=== PATIENT | female | born 1945 | race Caucasian/White ===

== ENCOUNTER → 2019-09-14 | Outpatient (REF) | payer MEDICARE, BC, OTHER | LOC: M LAB REF 08:22 | PROVIDERS: ATTEND Dermatology | DX: L72.0 Epidermal cyst (principal) ==

== ENCOUNTER 2023-08-08 07:41 | Emergency (ER) | payer MEDICARE, BC ==
[~2023-08-08] VITALS: Ht 165.1 cm; Wt 68.0 kg
[2023-08-08] MEDS: DIGOXIN INJ 0.5 MG/2 ML AMP IV STA (08:20)
[2023-08-08 08:25] LABS: BASO % 0.6 % (0.0-1.0); EOS # 0.1 10^3/uL (0.0-0.5); EOS % 1.7 % (0.0-3.0); HEMATOCRIT 40.8 % (36.0-47.0); HEMOGLOBIN 14.2 g/dl (12.0-15.5); LYMPH # 2.3 10^3/uL (1.5-5.0); LYMPH % 48.2 % (24.0-44.0); MEAN CORPUSCULAR HEMOGLOBIN 31.1 pg (27.0-33.0); MEAN CORPUSCULAR HGB CONC 34.8 g/dl (32.0-36.5); MEAN CORPUSCULAR VOLUME 89.5 fl (80.0-96.0); MONO # 0.3 10^3/uL (0.0-0.8); MONO % 7.3 % (2.0-8.0); PLATELET COUNT, AUTOMATED 338 10^3/uL (150-450); RED BLOOD COUNT 4.56 10^6/uL (4.00-5.40); WHITE BLOOD COUNT 4.7 10^3/uL (4.0-10.0)
[2023-08-08 08:57] LABS: BLOOD UREA NITROGEN 11 MG/DL (9-23); CALCIUM LEVEL 8.9 MG/DL (8.3-10.6); CARBON DIOXIDE LEVEL 26 MMOL/L (20-31); CHLORIDE LEVEL 107 MMOL/L (98-107); CREATININE FOR GFR 0.54 MG/DL (0.55-1.30); GLOMERULAR FILTRATION RATE > 60.0 (>39); GLUCOSE, FASTING 132 MG/DL (74-106); MAGNESIUM LEVEL 1.9 MG/DL (1.8-2.4); POTASSIUM SERUM 4.1 MMOL/L (3.5-5.1); SODIUM LEVEL 140 MMOL/L (136-145)
[2023-08-08 08:59] LABS: THYROID STIMULATING HORMONE 2.234 uIU/ML (0.55-4.78)
[2023-08-08] MEDS ORDERED: SERT25TA85 PO (09:03)
[2023-08-08] MEDS ORDERED: PANT40TA29 PO (09:04)
[2023-08-08] MEDS ORDERED: ISOVUE-370 76% 100ML VIAL As Ordered ONE (09:04)
[2023-08-08] MEDS ORDERED: MIRA3350 PO (09:05)
[2023-08-08] MEDS ORDERED: ROPI0.5T33 PO (09:06)
[2023-08-08] MEDS ORDERED: LIPI20TA PO (09:06)
[2023-08-08] MEDS ORDERED: BUTA1CAP PO (09:32)
[2023-08-08] MEDS ORDERED: COQ150CH PO (09:32)
[2023-08-08] MEDS ORDERED: OMEG-23 PO (09:34)
[2023-08-08] MEDS ORDERED: CHOL125C6 PO (09:35)
[2023-08-08] MEDS ORDERED: CALC1TAB42 PO (09:36)
[2023-08-08] MEDS ORDERED: B12-1CHW PO (09:37)
[2023-08-08] MEDS ORDERED: BIOT5TAB3 PO (09:37)
[2023-08-08] MEDS ORDERED: MAGO400T2 PO (09:38)
[2023-08-08] MEDS ORDERED: ELIQ5TAB PO (13:24)
[2023-08-08] MEDS ORDERED: HOLTER MONITOR XX (13:24)
[2023-08-08] MEDS: APIXABAN 5 MG TAB (ELIQUIS) PO ONE (13:26)
[2023-08-08 13:30] VITALS: BP 116/67; TEMP 97.1; O2SAT 98
== END 2023-08-08 13:45 | disposition home or self-care (01) ==
LOC: EDBD 07:41 → M ED 07:41
DX: R00.1 Bradycardia, unspecified (principal); K21.9 Gastro-esophageal reflux disease without esophagitis; E78.5 Hyperlipidemia, unspecified; F41.9 Anxiety disorder, unspecified; F32.A Depression, unspecified; Z91.89 Other specified personal risk factors, not elsewhere classified; Z91.02 Food additives allergy status
CPT/HCPCS: 71045; 71275; 80048; 83735; 84443; 84484; 85025; 93005; 93041; 94760; 96374; 99285; J1160; Q9967

== ENCOUNTER → 2023-08-08 | Outpatient (CLI) | payer MEDICARE, BC ==
[~2023-08-08] MED LIST: B12-1CHW PO; BIOT5TAB3 PO; BUTA1CAP PO; CALC1TAB42 PO; CHOL125C6 PO; COQ150CH PO; ELIQ5TAB PO; HOLTER MONITOR XX; LIPI20TA PO; MAGO400T2 PO; MIRA3350 PO; OMEG-23 PO; PANT40TA29 PO; ROPI0.5T33 PO; SERT25TA85 PO
== END ==
LOC: M EKG 13:49
PROVIDERS: ATTEND Emergency Medicine
DX: I48.91 Unspecified atrial fibrillation (principal); Z53.9 Procedure and treatment not carried out, unspecified reason

== ENCOUNTER → 2024-06-21 | Outpatient (REF) | payer MEDICARE, OTHER | LOC: M LAB REF 17:05 | PROVIDERS: ATTEND Registered Nurse | DX: R35.0 Frequency of micturition (principal) ==

== ENCOUNTER → 2024-06-28 | Outpatient (CLI) | payer MEDICARE, BC | LOC: M PLARAD 12:48 | PROVIDERS: ATTEND Registered Nurse | DX: G43.909 Migraine, unspecified, not intractable, without status migrainosus (principal); G31.9 Degenerative disease of nervous system, unspecified ==

== ENCOUNTER → 2024-09-19 | Outpatient (REF) | payer MEDICARE, BC ==
[2024-09-19 17:55] LABS: APPEARANCE, URINE CLEAR (CLEAR); BACTERIA, URINE AUTO NEGATIVE (NEGATIVE); BILIRUBIN, URINE AUTO NEGATIVE (NEGATIVE); BLOOD, URINE BLOOD 1+ (NEGATIVE); GLUCOSE, URINE (UA) AUTO NEGATIVE (NEGATIVE); KETONE, URINE AUTO NEGATIVE (NEGATIVE); LEUKOCYTE ESTERASE, URINE AUTO NEGATIVE (NEGATIVE); NITRITE, URINE AUTO NEGATIVE (NEGATIVE); PROTEIN, URINE AUTO NEGATIVE (NEGATIVE); RBC, URINE AUTO 1 /HPF (0-3); SPECIFIC GRAVITY URINE AUTO 1.008 (1.002-1.035); SQUAMOUS EPITHELIAL CELL UR AU 0 /HPF (0-6); UROBILINOGEN, URINE AUTO 0.2 mg/dL (0.0-2.0); WBC, URINE AUTO 0 /HPF (0-3)
== END ==
LOC: M SMT 17:00
PROVIDERS: ATTEND Urology
DX: R31.29 Other microscopic hematuria (principal)

== ENCOUNTER → 2024-09-26 | Outpatient (CLI) | payer MEDICARE, BC | LOC: M RAD 07:41 | PROVIDERS: ATTEND Registered Nurse | DX: R93.89 Abnormal findings on diagnostic imaging of other specified body structures (principal); R93.2 Abnormal findings on diagnostic imaging of liver and biliary tract; R93.3 Abnormal findings on diagnostic imaging of other parts of digestive tract ==

== ENCOUNTER → 2024-11-01 | Outpatient (REF) | payer MEDICARE, BC ==
[2024-11-01 14:17] LABS: APPEARANCE, URINE HAZY (CLEAR); BACTERIA, URINE AUTO 1+ (NEGATIVE); BILIRUBIN, URINE AUTO NEGATIVE (NEGATIVE); BLOOD, URINE BLOOD 1+ (NEGATIVE); GLUCOSE, URINE (UA) AUTO NEGATIVE (NEGATIVE); KETONE, URINE AUTO NEGATIVE (NEGATIVE); LEUKOCYTE ESTERASE, URINE AUTO 3+ (NEGATIVE); NITRITE, URINE AUTO NEGATIVE (NEGATIVE); PROTEIN, URINE AUTO NEGATIVE (NEGATIVE); RBC, URINE AUTO 23 /HPF (0-3); SPECIFIC GRAVITY URINE AUTO 1.016 (1.002-1.035); SQUAMOUS EPITHELIAL CELL UR AU 0 /HPF (0-6); UROBILINOGEN, URINE AUTO 0.2 mg/dL (0.0-2.0); WBC, URINE AUTO TNTC /HPF (0-3)
== END ==
LOC: M SMT 13:04
PROVIDERS: ATTEND Nurse Practitioner Family
DX: R39.9 Unspecified symptoms and signs involving the genitourinary system (principal)

== ENCOUNTER → 2024-11-21 | Outpatient (REF) | payer MEDICARE, BC ==
[2024-11-21 14:40] LABS: AMORPHOUS SEDIMENT SMALL (NEGATIVE); APPEARANCE, URINE HAZY (CLEAR); BACTERIA, URINE AUTO NEGATIVE (NEGATIVE); BILIRUBIN, URINE AUTO NEGATIVE (NEGATIVE); BLOOD, URINE BLOOD 1+ (NEGATIVE); GLUCOSE, URINE (UA) AUTO NEGATIVE (NEGATIVE); KETONE, URINE AUTO NEGATIVE (NEGATIVE); LEUKOCYTE ESTERASE, URINE AUTO 1+ (NEGATIVE); MUCUS, URINE SMALL (NEGATIVE); NITRITE, URINE AUTO NEGATIVE (NEGATIVE); PROTEIN, URINE AUTO NEGATIVE (NEGATIVE); RBC, URINE AUTO 5 /HPF (0-3); SPECIFIC GRAVITY URINE AUTO 1.015 (1.002-1.035); SQUAMOUS EPITHELIAL CELL UR AU 1 /HPF (0-6); UROBILINOGEN, URINE AUTO 0.2 mg/dL (0.0-2.0); WBC, URINE AUTO 20 /HPF (0-3)
== END ==
LOC: M SMT 12:30
PROVIDERS: ATTEND Nurse Practitioner Family
DX: R39.9 Unspecified symptoms and signs involving the genitourinary system (principal)